=== PATIENT | male | born 1985 ===

== ENCOUNTER 2018-08-07 09:40 | Emergency (ER) | payer OTHER ==
[2018-08-07 09:49] VITALS: TEMP 98.4
--- NOTE | 2018-08-07 10:22 | C.PDOC ---
History Of Present Illness 33 year old male presents to the ED complaining of lower back pain for 2 months and right sided flank pain for 4 days. 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 Denies any trauma or falls. Denies any fever, chills, nausea, vomiting, diarrhea, constipation, bloody or dark stools, urinary symptoms, weakness, numbness, chest pain, or shortness of breath. Reports he has been taking Ibuprofen with mild relief. Notes he brought his to the ER so he decided to get checked as well. Time Seen by Provider: 08/07/18 10:22 Chief Complaint (Nursing): Back Pain History Per: Patient History/Exam Limitations: no limitations Onset/Duration Of Symptoms: Days Current Symptoms Are (Timing): Still Present Quality Of Discomfort: "Pain" Previous Symptoms: None Associated Symptoms: None Past Medical History Reviewed: Historical Data, Nursing Documentation, Vital Signs Vital Signs: Last Vital Signs Temp 98.4 F 08/07/18 09:48 Pulse 61 08/07/18 09:48 Resp 20 08/07/18 09:48 BP 134/78 08/07/18 09:48 Pulse Ox 96 08/07/18 09:48 - Medical History PMH: No Chronic Diseases Surgical History: No Surg Hx Family History: States: No Known Family Hx - Social History Hx Alcohol Use: Yes Hx Substance Use: No - Immunization History Hx Tetanus Toxoid Vaccination: No Hx Influenza Vaccination: No Review Of Systems Constitutional: Negative for: Fever, Chills, Weakness, Malaise, Weight loss Eyes: Negative for: Pain, Vision Change, Conjunctivae Inflammation ENT: Negative for: Ear Pain, Ear Discharge, Nose Pain, Nose Congestion Cardiovascular: Negative for: Chest Pain, Palpitations Respiratory: Negative for: Shortness of Breath Gastrointestinal: Positive for: Abdominal Pain (right sided ). Negative for: Nausea, Vomiting, Diarrhea, Constipation, Melena, Hematochezia, Hematemesis Genitourinary: Negative for: Dysuria, Frequency, Hematuria Musculoskeletal: Positive for: Back Pain (lower back ). Negative for: Neck Pain, Shoulder Pain, Arm Pain, Hand Pain, Leg Pain Skin: Negative for: Rash Neurological: Negative for: Weakness, Numbness Physical Exam - Physical Exam Appears: Well, Non-toxic, No Acute Distress Skin: Warm, Dry, No Rash Head: Normacephalic Eye(s): bilateral: Normal Inspection, PERRL, EOMI Ear(s): Left: Normal Nose: Normal Oral Mucosa: Moist Tongue: Normal Appearing Lips: Normal Appearing Throat: Normal, No Erythema, No Exudate Neck: Normal, Normal ROM, Supple, Other (no meningeal signs) Lymphatic: Normal Exam Chest: Symmetrical Cardiovascular: Rhythm Regular Respiratory: No Rales, No Rhonchi, No Wheezing Gastrointestinal/Abdominal: Normal Exam, Soft, Tenderness (right sided lateral tenderness), No Guarding, No Rebound Back: No CVA Tenderness, No Vertebral Tenderness, No Decreased ROM, No Muscle Spasm, Paraspinal Tenderness (B/L paraspinal L4 tenderness ), No Other (midline tenderness ) Extremity: Normal ROM, No Tenderness Extremity: Bilateral: Atraumatic, Normal Color And Temperature, Normal ROM Pulses: Left Dorsalis Pedis: Normal, Right Dorsalis Pedis: Normal Neurological/Psych: Oriented x3, Normal Speech, Normal Cognition, Normal Motor, Normal Sensation Gait: Steady ED Course And Treatment - Laboratory Results Result Diagrams: 08/07/18 11:15 08/07/18 11:15 O2 Sat by Pulse Oximetry: 96 (RA) Pulse Ox Interpretation: Normal - CT Scan/US CT ABD/PEL Other Rad Studies (CT/US): Read By Radiologist, Radiology Report Reviewed CT/US Interpretation: Accession No. : [id number]. Patient Name / ID : MELY BRIONES / [id number]. Exam Date : 08/07/2018 12:23:01 ( Approved ). Study Comment : Sex / Age : M / 33Y. Creator : Nav De La Rosa MD. Dictator : Nav De La Rosa MD. Radiology Director : Paramedic Instructor : Nav De La Rosa MD. Approver2 : Report Date : 08/07/2018 13:14:31. My Comment : . CT abdomen and pelvis. History: Abdominal pain. Comparison: Non available. Technique: Multiple contiguous axial images were performed through the abdomen and pelvis with the use of intravenous contrast. Subsequently, sagittal and coronal reformatted images were obtained. This CT exam was performed using one or more of the following dose reduction techniques: Automated exposure control, adjustment of the mA and/or kV according to patient size, and/or use of iterative reconstruction technique. Findings: Patchy atelectasis at the lung bases. No pleural or pericardial effusion. Hete rogeneous attenuation of the liver with mild fatty infiltration. Gallbladder is preserved. Spleen is preserved. Adrenal glands are preserved. Pancreas is preserved. Upper abdominal bowel is preserved. Right kidney: 6 millimeter midpole hypodensity, too small to adequately characterize. No gross hydronephrosis. Left Kidney: No calculi or hydronephrosis. Urinary bladder is preserved. Heterogeneous and prominent prostate measuring up to 5.1 centimeters with associated calcification. Fecal retention in the colon. Appendix is visualized and is within normal limits. Few shotty para-aortic and inguinal lymph nodes. Few shotty mesenteric nodes. Small fat containing umbilical hernia. Degenerative changes in the spine. Mild sclerosis of the left SI joint. Schmorl's node formation at the superior endplate of the L5 vertebral body. Impression: Negative acute. Prominent prostate. Heterogeneous attenuation of the liver with mild fatty infiltration. Schmorl's node formation at the superior endplate of the L5 vertebral body. Additional findings as above. Medical Decision Making Medical Decision Makin yr old male p/w back pain and abdominal pain. No difficulty stooling, well appearing on exam, tender on exam but without any rebound or guarding. No enuresis / encoparesis or saddle anesthesia. No midline tenderness. No IVDU. No rashes noted on abd exam. No hx of trauma or fall. No urinary complaints. Impression: MSK Back pain Plan - CT ABD/PEL - Bloodwork - Toradol 15mg IVP - UA imaging unremarkable. endorsed to pt regarding prominent prostate and need to f/u w/ urology he noted understanding no lower back pain, no constipation clear for d/c home w/ return indcation and f/u Disposition - Disposition Referrals: Otto Anthony MD [Staff Provider] - Juan Carlos Brooks MD [Staff Provider] - [facility] [[facility]] Disposition: HOME/ ROUTINE Disposition Time: 13:23 Condition: GOOD Instructions: Muscle Strain, Low Back Pain (DC) Forms: [email or web address] (Iranian) - Clinical Impression Clinical Impression: Low back pain, Low back strain - Scribe Statement The provider has reviewed the documentation as recorded by the Scribe Brit Anderson All medical record entries made by the Renatoibe were at my direction and personally dictated by me. I have reviewed the chart and agree that the record accurately reflects my personal performance of the history, physical exam, medical decision making, and the department course for this patient. I have also personally directed, reviewed, and agree with the discharge instructions and disposition.
[2018-08-07] MEDS ORDERED: Sodium Chloride 0.9% 1,000 ML IV ONE (10:46)
[2018-08-07 11:30] LABS: BASO % 0.4 % (0.0-2.0); EOS # 0.1 K/uL (0.0-0.7); EOS % 0.9 % (0.0-4.0); HEMOGLOBIN 15.9 g/dL (12.0-18.0); LYMPH # 1.1 K/uL (1.0-4.3); LYMPH % 18.2 % (20.0-40.0); MEAN CELL VOLUME 95.3 fL (80.0-94.0); MEAN CORPUSCULAR HEMOGLOBIN 31.5 pg (27.0-31.0); MEAN CORPUSCULAR HGB CONC 33.1 g/dL (33.0-37.0); MEAN PLATELET VOLUME 10.1 fL (7.2-11.7); MONO # 0.4 K/uL (0.0-0.8); MONO % 6.3 % (0.0-10.0); NEUT # 4.5 K/uL (1.8-7.0); NEUT % 74.2 % (50.0-75.0); RBC 5.06 Mil/uL (4.40-5.90); RED CELL DISTRIBUTION WIDTH 13.7 % (11.5-14.5); WHITE BLOOD COUNT 6.1 K/uL (4.8-10.8)
[2018-08-07 11:41] LABS: SQUAMOUS EPITHIAL < 1 /hpf (0-5); URINE BILIRUBIN NEGATIVE (NEGATIVE); URINE BLOOD NEGATIVE (NEGATIVE); URINE CLARITY Clear (Clear); URINE COLOR Yellow (YELLOW); URINE GLUCOSE (UA) NORMAL (Normal); URINE LEUKOCYTE ESTERASE NEG Leu/uL (Negative); URINE PROTEIN NEGATIVE (NEGATIVE); URINE UROBILINOGEN NORMAL mg/dL (0.2-1.0)
[2018-08-07 11:49] LABS: ALB/GLOB RATIO 1.7 (1.0-2.1); ALBUMIN 4.5 g/dL (3.5-5.0); ALT/SGPT 33 U/L (21-72); AST/SGOT 37 U/L (17-59); BLOOD UREA NITROGEN 12 mg/dL (9-20); CALCIUM 9.8 mg/dl (8.6-10.4); GFR NON-AFRICAN AMERICAN > 60; LIPASE 54 U/L (23-300)
--- NOTE | 2018-08-07 13:18 | CT ---
CT abdomen and pelvis History: Abdominal pain. Comparison: Non available. Technique: Multiple contiguous axial images were performed through the abdomen and pelvis with the use of intravenous contrast. Subsequently, sagittal and coronal reformatted images were obtained. This CT exam was performed using one or more of the following dose reduction techniques: Automated exposure control, adjustment of the mA and/or kV according to patient size, and/or use of iterative reconstruction technique. Findings: Patchy atelectasis at the lung bases. No pleural or pericardial effusion. Heterogeneous attenuation of the liver with mild fatty infiltration. Gallbladder is preserved. Spleen is preserved. Adrenal glands are preserved. Pancreas is preserved. Upper abdominal bowel is preserved. Right kidney: 6 millimeter midpole hypodensity, too small to adequately characterize. No gross hydronephrosis. Left Kidney: No calculi or hydronephrosis. Urinary bladder is preserved. Heterogeneous and prominent prostate measuring up to 5.1 centimeters with associated calcification. Fecal retention in the colon. Appendix is visualized and is within normal limits. Few shotty para-aortic and inguinal lymph nodes. Few shotty mesenteric nodes. Small fat containing umbilical hernia. Degenerative changes in the spine. Mild sclerosis of the left SI joint. Schmorl's node formation at the superior endplate of the L5 vertebral body. Impression: Negative acute. Prominent prostate. Heterogeneous attenuation of the liver with mild fatty infiltration. Schmorl's node formation at the superior endplate of the L5 vertebral body. Additional findings as above.
[2018-08-07 13:35] VITALS: BP 131/79; PULSE 69; RESP 19
[2018-08-13 14:20] VITALS: O2SAT 96
== END 2018-08-07 13:34 | disposition home or self-care (01) ==
LOC: C.ER 09:40
DX: S39.012A Strain of muscle, fascia and tendon of lower back, initial encounter (principal); X58.XXXA Exposure to other specified factors, initial encounter
CPT/HCPCS: 74177; 80053; 81001; 83690; 83735; 85025; 96361; 96374; 99284; J1885; J7030

== ENCOUNTER 2018-08-14 10:31 | Emergency (ER) | payer OTHER ==
[2018-08-14 10:51] VITALS: RESP 18
[2018-08-14] MEDS ORDERED: Sodium Chloride 0.9% 1,000 ML IV STA (11:15)
[2018-08-14] MEDS ORDERED: Iohexol 240 (50 ml) PO STA (11:15)
[2018-08-14] MEDS ORDERED: Sodium Chloride 0.9% 1,000 ML ONE (11:38)
[2018-08-14] MEDS ORDERED: Iohexol 240 (50 ml) ONE (11:38)
[2018-08-14 11:44] LABS: BASO % 0.4 % (0.0-2.0); EOS # 0.1 K/uL (0.0-0.7); EOS % 0.8 % (0.0-4.0); HEMOGLOBIN 16.3 g/dL (12.0-18.0); LYMPH # 1.1 K/uL (1.0-4.3); LYMPH % 16.1 % (20.0-40.0); MEAN CELL VOLUME 94.6 fL (80.0-94.0); MEAN CORPUSCULAR HEMOGLOBIN 31.8 pg (27.0-31.0); MEAN CORPUSCULAR HGB CONC 33.6 g/dL (33.0-37.0); MEAN PLATELET VOLUME 9.2 fL (7.2-11.7); MONO # 0.4 K/uL (0.0-0.8); MONO % 6.5 % (0.0-10.0); NEUT # 5.2 K/uL (1.8-7.0); NEUT % 76.2 % (50.0-75.0); RBC 5.12 Mil/uL (4.40-5.90); RED CELL DISTRIBUTION WIDTH 13.2 % (11.5-14.5); WHITE BLOOD COUNT 6.9 K/uL (4.8-10.8)
[2018-08-14 11:51] LABS: SQUAMOUS EPITHIAL < 1 /hpf (0-5); URINE BACTERIA RARE (<OCC); URINE BILIRUBIN NEGATIVE (NEGATIVE); URINE BLOOD 1+ (NEGATIVE); URINE CLARITY Clear (Clear); URINE COLOR Yellow (YELLOW); URINE GLUCOSE (UA) NORMAL (Normal); URINE LEUKOCYTE ESTERASE NEG Leu/uL (Negative); URINE PROTEIN NEGATIVE (NEGATIVE); URINE UROBILINOGEN NORMAL mg/dL (0.2-1.0)
[2018-08-14 11:58] LABS: HCG,QUALITATIVE URINE NEGATIVE
[2018-08-14 12:02] LABS: ALB/GLOB RATIO 1.7 (1.0-2.1); ALBUMIN 4.6 g/dL (3.5-5.0); ALT/SGPT 61 U/L (21-72); AST/SGOT 42 U/L (17-59); BLOOD UREA NITROGEN 8 mg/dL (9-20); CALCIUM 9.7 mg/dl (8.6-10.4); GFR NON-AFRICAN AMERICAN > 60; LIPASE 66 U/L (23-300)
--- NOTE | 2018-08-14 12:07 | C.PDOC ---
History Of Present Illness 33 y/o male with no PMHx presents to the ED complaining of severe pain in the RLQ, radiating to right flank area. Patient was seen here for the same complaint, diagnosed with a muscle spasm. However he reports the pain continues, prompting him to return to the ED. Otherwise patient denies any vomiting, diarrhea, urinary complaints, chest pain, or SOB. Time Seen by Provider: 08/14/18 10:56 Chief Complaint (Nursing): Abdominal Pain History Per: Patient History/Exam Limitations: no limitations Onset/Duration Of Symptoms: Days Current Symptoms Are (Timing): Still Present Location Of Pain/Discomfort: RLQ Quality Of Discomfort: Sharp Past Medical History Reviewed: Historical Data, Nursing Documentation, Vital Signs Vital Signs: Last Vital Signs Temp 98.5 F 08/14/18 10:44 Pulse 69 08/14/18 10:44 Resp 18 08/14/18 10:44 BP 112/73 08/14/18 10:44 Pulse Ox 97 08/14/18 10:44 - Medical History PMH: No Chronic Diseases Surgical History: No Surg Hx Family History: States: Unknown Family Hx - Social History Hx Alcohol Use: No Hx Substance Use: No - Immunization History Hx Tetanus Toxoid Vaccination: No Hx Influenza Vaccination: Yes Hx Pneumococcal Vaccination: No Review Of Systems Except As Marked, All Systems Reviewed And Found Negative. Constitutional: Negative for: Fever, Chills, Sweats Eyes: Negative for: Vision Change Cardiovascular: Negative for: Chest Pain Respiratory: Negative for: Shortness of Breath Gastrointestinal: Positive for: Abdominal Pain (RLQ). Negative for: Vomiting, Diarrhea, Melena, Hematochezia Genitourinary: Negative for: Dysuria, Hematuria Musculoskeletal: Positive for: Back Pain (right flank) Skin: Negative for: Rash Neurological: Negative for: Weakness, Numbness Physical Exam - Physical Exam Appears: Non-toxic, In Acute Distress (Mild painful distress) Skin: Warm, Dry, No Rash Head: Atraumatic, Normacephalic Eye(s): bilateral: Normal Inspection, PERRL, EOMI Oral Mucosa: Moist Neck: Normal ROM Chest: Symmetrical Cardiovascular: Rhythm Regular, No Murmur Respiratory: Normal Breath Sounds, No Accessory Muscle Use Gastrointestinal/Abdominal: Soft, Tenderness (Exquisitely tender at RLQ), No Guarding, No Rebound Back: No CVA Tenderness, No Vertebral Tenderness, Paraspinal Tenderness (Slight tenderness to right mid-back, parathoracic) Extremity: Bilateral: Atraumatic, Normal Color And Temperature, Normal ROM Neurological/Psych: Oriented x3, Normal Speech, Normal Cranial Nerves ED Course And Treatment - Laboratory Results Result Diagrams: 08/14/18 11:41 08/14/18 11:41 Lab Results: Total Bilirubin 0.9 mg/dL (0.2-1.3) 08/14/18 11:41 AST 42 U/L (17-59) 08/14/18 11:41 ALT 61 U/L (21-72) 08/14/18 11:41 Alkaline Phosphatase 93 U/L (38-126) 08/14/18 11:41 Total Protein 7.2 g/dL (6.3-8.3) 08/14/18 11:41 Albumin 4.6 g/dL (3.5-5.0) 08/14/18 11:41 Globulin 2.7 gm/dL (2.2-3.9) 08/14/18 11:41 Albumin/Globulin Ratio 1.7 (1.0-2.1) 08/14/18 11:41 Lipase 66 U/L (23-300) 08/14/18 11:41 Urine Color Yellow (YELLOW) 08/14/18 11:41 Urine Clarity Clear (Clear) 08/14/18 11:41 Urine pH 5.0 (5.0-8.0) 08/14/18 11:41 Ur Specific [place] 1.016 (1.003-1.030) 08/14/18 11:41 Urine Protein Negative mg/dL (NEGATIVE) 08/14/18 11:41 Urine Glucose (UA) Normal mg/dL (Normal) 08/14/18 11:41 Urine Ketones Negative mg/dL (NEGATIVE) 08/14/18 11:41 Urine Blood 1+ (NEGATIVE) H 08/14/18 11:41 Urine Nitrate Negative (NEGATIVE) 08/14/18 11:41 Urine Bilirubin Negative (NEGATIVE) 08/14/18 11:41 Urine Urobilinogen Normal mg/dL (0.2-1.0) 08/14/18 11:41 Ur Leukocyte Esterase Neg Netta/uL (Negative) 08/14/18 11:41 Urine WBC (Auto) 1 /hpf (0-5) 08/14/18 11:41 Urine RBC (Auto) 1 /hpf (0-3) 08/14/18 11:41 Ur Squamous Epith Cells < 1 /hpf (0-5) 08/14/18 11:41 Urine Bacteria Rare (<OCC) 08/14/18 11:41 Urine HCG, Qual Negative 08/14/18 11:41 Urine HCG, Qual Negative 08/14/18 11:41 O2 Sat by Pulse Oximetry: 97 (on RA) Pulse Ox Interpretation: Normal - CT Scan/US CT Abd/Pelvis with contrast Other Rad Studies (CT/US): Read By Radiologist, Radiology Report Reviewed CT/US Interpretation: Accession No. : [id number]. Patient Name / ID : MELY BRIONES / [id number]. Exam Date : 08/14/2018 13:12:51 ( Approved ). Study Comment : Sex / Age : M / 33Y. Creator : Gloria Bass. Dictator : Mike Westbrook MD. Piecer Up : Windows Systems Administrator : Mike Westbrook MD. Approver2 : Report Date : 08/14/2018 13:23:25. My Comment : . Date of service: 08/14/2018. PROCEDURE: CT Abdomen and Pelvis with contrast. HISTORY: RLQ and right flank pain. COMPARISON: 08/07/2018. TECHNIQUE: Contrast dose: 100 mL Visipaque 320. Radiation dose: Total exam DLP = 1149.76 mGy-cm. This CT exam was performed using one or more of the following dose reduction techniques: Automated exposure control, adjustment of the mA and/or kV according to patient size, and/or use of iterative reconstruction technique. FINDINGS: LOWER THORAX: Unremarkable. LIVER: Unremarkable. No gross lesion or ductal dilatation. GALLBLADDER AND BILE DUCTS: Unremarkable. PANCREAS: Unremarkable. No gross lesion or ductal dilatation. SPLEEN: Unremarkable. ADRENALS: Unremarkable. No mass. KIDNEYS AND URETERS: Unremarkable. No hydronephrosis. No solid mass. VASCULATURE: Unremarkable. No aortic aneurysm. No aortic atherosclerotic calcification or mural plaque present. BOWEL: Unremarkable. No obstruction. No gross mural thickening. APPENDIX: Normal appendix. PERITONEUM: Unremarkable. No free fluid. No free air. LYMPH NODES: Unremarkable. No enlarged lymph nodes. BLADDER: Poorly distended. No gross abnormality. REPRODUCTIVE: Unremarkable prostate. BONES: No acute fracture. OTHER FINDINGS: None. IMPRESSION: Unremarkable examination. No evidence of acute appendicitis or urinary calculus. Progress Note: Blood work and urine sent to the lab for analysis. CT abd/pelvis with PO&IV contrast ordered. Patient given 1L IV fluids, 30 mg IV Toradol, and 4 mg IV Zofran. Labs and imaging reviewed - no signs of acute appendicitis on CT scan. On re-evaluation patient feels better and is stable to be d/c home with Clinic follow up. Disposition - Disposition Referrals: [facility] [Outside] Disposition: HOME/ ROUTINE Disposition Time: 16:17 Condition: STABLE Additional Instructions: Follow up in Clinic within 1-2 days. Return to ED if feel worse. Prescriptions: Cyclobenzaprine [Cyclobenzaprine HCl] 10 mg PO TID #15 tab Lidocaine 5% [Lidoderm] 1 patch TP DAILY #30 patch Ibuprofen [Motrin Tab] 600 mg PO Q8 #30 tab Instructions: Flank Pain (DC) Forms: [facility] (St Helenian) Print Language: SERBIAN - Clinical Impression Clinical Impression: Flank pain - PA / AGRICULTURE PROFESSOR / Resident Statement MD/DO has reviewed & agrees with the documentation as recorded. - Scribe Statement The provider has reviewed the documentation as recorded by the Renatoibromeo Harris All medical record entries made by the Jc were at my direction and personally dictated by me. I have reviewed the chart and agree that the record accurately reflects my personal performance of the history, physical exam, medical decision making, and the department course for this patient. I have also personally directed, reviewed, and agree with the discharge instructions and disposition.
[2018-08-14] MEDS ORDERED: Iodixanol 320 MG/ML 100 ML BOTTLE IV ONE (12:49)
--- NOTE | 2018-08-14 14:00 | CT ---
Date of service: 08/14/2018 PROCEDURE: CT Abdomen and Pelvis with contrast HISTORY: RLQ and right flank pain COMPARISON: 08/07/2018 TECHNIQUE: Contrast dose: 100 mL Visipaque 320 Radiation dose: Total exam DLP = 1149.76 mGy-cm. This CT exam was performed using one or more of the following dose reduction techniques: Automated exposure control, adjustment of the mA and/or kV according to patient size, and/or use of iterative reconstruction technique. FINDINGS: LOWER THORAX: Unremarkable. LIVER: Unremarkable. No gross lesion or ductal dilatation. GALLBLADDER AND BILE DUCTS: Unremarkable. PANCREAS: Unremarkable. No gross lesion or ductal dilatation. SPLEEN: Unremarkable. ADRENALS: Unremarkable. No mass. KIDNEYS AND URETERS: Unremarkable. No hydronephrosis. No solid mass. VASCULATURE: Unremarkable. No aortic aneurysm. No aortic atherosclerotic calcification or mural plaque present. BOWEL: Unremarkable. No obstruction. No gross mural thickening. APPENDIX: Normal appendix. PERITONEUM: Unremarkable. No free fluid. No free air. LYMPH NODES: Unremarkable. No enlarged lymph nodes. BLADDER: Poorly distended. No gross abnormality. REPRODUCTIVE: Unremarkable prostate. BONES: No acute fracture. OTHER FINDINGS: None. IMPRESSION: Unremarkable examination. No evidence of acute appendicitis or urinary calculus.
[2018-08-14] MEDS ORDERED: Lidocaine 5% Patch TD STA (15:20)
[2018-08-14] MEDS ORDERED: Lidocaine 5% Patch TD ONE (15:35)
[2018-08-14 16:38] VITALS: BP 111/72; PULSE 60; TEMP 97.9
[2018-08-15 20:05] VITALS: O2SAT 97
== END 2018-08-14 16:38 | disposition home or self-care (01) ==
LOC: C.ER 10:31
DX: R10.9 Unspecified abdominal pain (principal)
CPT/HCPCS: 74177; 80053; 81001; 83690; 84153; 84154; 84703; 85025; 96361; 96374; 96375; 99285; J1885; J2405; J7030; Q9966; Q9967